=== PATIENT | male | born 1990 | race Caucasian/White ===

== ENCOUNTER 2018-07-23 14:44 | Emergency (ER) | payer OTHER ==
[2018-07-23 15:19] VITALS: BP 118/68
--- NOTE | 2018-07-23 15:46 | RAD ---
HISTORY: PAIN S/P TRAUMA,WORST 1ST METATARSAL COMPARISONS: None VIEWS: 3 , Frontal, lateral, and oblique views of the left foot FINDINGS: BONE DENSITY: Normal. BONES: There is no displaced fracture. JOINTS: There is no arthropathy. ALIGNMENT: There is no dislocation. SOFT TISSUES: Unremarkable. OTHER FINDINGS: None. IMPRESSION: NO ACUTE OSSEOUS INJURY. IF SYMPTOMS PERSIST, RECOMMEND REPEAT IMAGING.
--- NOTE | 2018-07-23 16:10 | UC ---
Lower Extremity/Ankle HPI - HPI Summary HPI Summary: 27 y/o male presents to the urgent care c/o left foot pain s/p playing squash last night. pt reports he was running and he hit his foot w/ the wall. Pain is mostly in the left great toe radiating to the medial aspect of the foot. Pain is 3/10 now specially w/ movement. or walking. Pt applied ice and took Tylenol PO to alleviate symptoms. Last dose taken was this morning. Pt denies numbness or tingling sensation over the left foot, swelling, calf pain, SOB chest pain, abdominal pain, N/V/D. - History of Current Complaint Chief Complaint: UCLowerExtremity Stated Complaint: FOOT INJURY Time Seen by Provider: 07/23/18 15:41 Hx Obtained From: Patient Onset/Duration: Sudden Onset, Lasting Days - 1 day, Still Present Severity Initially: Mild Severity Currently: Mild Pain Intensity: 3 Pain Scale Used: 0-10 Numeric Aggravating Factor(s): Standing, Ambulation Alleviating Factor(s): Rest, Elevation, Ice, OTC Meds Able to Bear Weight: Yes - Risk Factors Gout Risk Factors: Negative DVT Risk Factors: Negative Septic Arthritis Risk Factor: Negative - Allergies/Home Medications Allergies/Adverse Reactions: Allergies Allergy/AdvReac Type Severity Reaction Status Date / Time No Known Allergies Allergy Verified 07/23/18 15:12 Home Medications: Home Medications Clindamycin Cap(NF) [Clindamycin Cap 300 mg Cap(NF)] 300 mg PO Q6H 07/23/18 [ History Confirmed 07/23/18] Finasteride 1 mg PO DAILY 07/23/18 [History Confirmed 07/23/18] PMH/Surg Hx/FS Hx/Imm Hx Previously Healthy: Yes - Pt denies PMHX - Surgical History Surgical History: Yes Surgery Procedure, Year, and Place: R femur fracture with pin placement approximately 2007 - Family History Known Family History: Positive: Cardiac Disease, Hypertension, Diabetes - Social History Occupation: Student Lives: With Family Alcohol Use: Rare Substance Use Type: None Smoking Status (MU): Never Smoked Tobacco - Immunization History Most Recent Tetanus Shot: UNKNOWN Review of Systems Constitutional: Negative Skin: Negative Eyes: Negative ENT: Negative Respiratory: Negative Cardiovascular: Negative Gastrointestinal: Negative Genitourinary: Negative Motor: Negative Neurovascular: Negative Musculoskeletal: Decreased ROM - left big toe, Other: - left foot pain s/p injury Neurological: Negative Psychological: Negative Is Patient Immunocompromised?: No All Other Systems Reviewed And Are Negative: Yes Physical Exam - Summary Physical Exam Summary: Vital Signs Reviewed: Yes General : well developed, well nourished male w/o any apparent distress Eyes: Positive: Conjunctiva Clear - PERRLA, EOMI ENT: Positive: Normal ENT inspection, Hearing grossly normal, Pharynx normal, TMs normal Neck: Positive: Supple, Nontender, No Lymphadenopathy Respiratory: Positive: Chest non-tender, Lungs clear, Normal breath sounds, No respiratory distress Cardiovascular: Positive: RRR, No Murmur, Pulses Normal Abdomen Description: Positive: Nontender, No Organomegaly, Soft. Negative: CVA Tenderness (R), CVA Tenderness (L) Bowel Sounds: Positive: Present Musculoskeletal: Positive: Strength Intact, ROM Intact, No Edema, Left Foot/Toes : Pt is able to bear weight but ambulate with mild limping. LF foot :No surface trauma, ecchymosis, erythema, lesions, ulcers or break in skin integrity. The L foot is without obvious asymmetry or deformity when compared to the R foot. No bony step-off, Point tenderness to palpation over the left big toe at the First MTPJ, no tenderness over the toed or foot. FROM of left foot. Distal motor and neurovascular status are intact. Neurological Exam: Normal Psychological Exam: Normal Skin Exam: Normal Triage Information Reviewed: Yes Vital Signs: Initial Vital Signs Temp 98.4 F 07/23/18 15:08 Pulse 75 07/23/18 15:08 Resp 18 07/23/18 15:08 BP 118/68 07/23/18 15:08 Pulse Ox 97 07/23/18 15:08 Lower Extremity Course/Dx - Course Course Of Treatment: 27 y/o male presents to the urgent care c/o left foot pain s/p playing squash last night. pt reports he was running and he hit his foot w/ the wall. Pain is mostly in the left great toe radiating to the medial aspect of the foot. Pain is 3/10 now specially w/ movement. or walking. Pt applied ice and took Tylenol PO to alleviate symptoms. Last dose taken was this morning. Pt denies numbness or tingling sensation over the left foot, swelling, calf pain, SOB chest pain, abdominal pain, N/V/D. Hx obtained. LF foot X-ray ordered, Impression:There was no fracture, dislocation, soft tissue swelling or FB noted. Probably Left big toe sprain. Pt's toe by body taping w/ adjacent toe and then immobilized with johan-bandage and given a post-op shoe to avoid flexion. Advised RICE, and Rx Ibuprofen PO for pain, Advised If not improvement of symptoms to f/u with Orthopedic DR Mustafa referral for further evaluation and treatment. Pt understood and agreed with D/C instructions. - Differential Dx/Diagnosis Differential Diagnosis/HQI/PQRI: Contusion, Dislocation, Fracture (Closed), Fracture (Open), Sprain, Strain, Tendonitis Provider Diagnoses: 1- Left foot pain s/p injury. 2- Left big toe sprain s/p injury Discharge - Sign-Out/Discharge Documenting (check all that apply): Patient Departure - D/c home All imaging exams completed and their final reports reviewed: Yes - Discharge Plan Condition: Stable Disposition: HOME Prescriptions: Ibuprofen TAB* [Motrin TAB* 600 MG] 600 mg PO Q6H PRN #30 tab PRN Reason: Pain Patient Education Materials: Foot Sprain (ED) Referrals: Israel Barron MD [Primary Care Provider] - 1 Week Crispin Mustafa MD [Medical Doctor] - 1 Week Additional Instructions: 1-Please take medications as directed to alleviate pain and swelling. 2-Please apply ice, keep your foot immobilized with the Johan bandage. Use the post-op shoe to avoid flexion of your toes. Avoid strenuous exercise or standing for long periods of time 3- Please f/u with your PCP or Orthopedic DR Mustafa in 1 week if not improvement of symptoms for further evaluation and treatment. - Billing Disposition and Condition Condition: STABLE Disposition: Home
== END 2018-07-23 16:23 | disposition home or self-care (01) ==
LOC: UCEAST 14:44
DX: S93.502A Unspecified sprain of left great toe, initial encounter (principal); W22.09XA Striking against other stationary object, initial encounter; Y93.73 Activity, racquet and hand sports; Y92.39 Other specified sports and athletic area as the place of occurrence of the external cause
CPT/HCPCS: 99203; G0463